=== PATIENT | female | born 1995 | race Asian ===

== ENCOUNTER 2016-09-04 23:03 | Inpatient (IN) | payer OTHER, MEDICAID ==
[2016-09-04] MEDS ORDERED: fentaNYL 100 MCG/2 ML INJ ONE (23:16)
[2016-09-04 23:33] LABS: ADD DIFF? YES; HEMATOCRIT 27.3 % (38.0-47.0); MEAN CELL VOLUME 94.1 fL (81.5-99.8); PLATELET COUNT 118 10^3/uL (150-400); RED CELL DISTRIBUTION WIDTH 11.5 % (11.5-15.2)
[2016-09-04 23:34] LABS: ABSOLUTE NRBC COUNT 0.02 10^3/uL (0-0.01); ADD MORPH? NO; ADD SCAN? NO; ATYPICAL LYMPHOCYTE FLAG 10 (0-99); FRAGMENT RBC FLAG 0 (0-99); LEFT SHIFT FLG 40 (0-99); LIPEMIA HEMOLYSIS FLAG 80 (0-99); NRBC-AUTO% 0.1 % (0.0-0.2); PLATELET CLUMPS FLAG 10 (0-99)
[2016-09-04 23:38] LABS: INR 1.34 (0.83-1.16); PROTIME(PATIENT) 16.6 SEC (12.0-15.0)
[2016-09-04 23:39] LABS: APTT 34.9 SEC (23.0-38.0)
[2016-09-04 23:42] LABS: ANION GAP 13 mEq/L (8-16); CALCIUM 8.8 mg/dL (8.5-10.4); CARBON DIOXIDE 20 mEq/l (22-31); CHLORIDE 105 mEq/L (97-110); ETHANOL SERUM < 10 mg/dL (0-10); GLOMERULAR FILTRATION RATE > 60; GLUCOSE 139 mg/dL (70-100); POTASSIUM 3.1 mEq/L (3.5-5.2); SODIUM 138 mEq/L (134-144)
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
[2016-09-04 23:55] LABS: PLATELET ESTIMATE ADEQUATE (ADEQ)
[2016-09-05] MEDS ORDERED: fentaNYL 100 MCG/2 ML INJ ONE
[2016-09-05] MEDS ORDERED: fentaNYL 100 MCG/2 ML INJ IVP ONE ×2 (00:12→00:13)
[2016-09-05] MEDS ORDERED: ceFAZolin 2 GM/DEXTROSE 100 ML IV ONE (00:13)
[2016-09-05] MEDS ORDERED: NALOXONE HCL 0.4 MG/ML INJ IVP PRN (00:18)
[2016-09-05] MEDS ORDERED: HYDROCODONE/APAP 5/325 TAB PO PRN (00:18)
[2016-09-05] MEDS ORDERED: HYDROmorphONE/DILAUDID 1 MG/ML SYR ONE (00:30)
[2016-09-05] MEDS ORDERED: HYDROmorphONE/DILAUDID 1 MG/ML SYR IVP ONE (00:32)
[2016-09-05] MEDS ORDERED: IOPAMIDOL (ISOVUE-300) 100 ML BTL IV ONE (01:14)
[2016-09-05 01:22] LABS: COLOR YELLOW; LEUKOCYTE ESTERASE,URINE NEGATIVE (NEGATIVE); NITRITE,URINE NEGATIVE (NEGATIVE)
[2016-09-05 01:25] LABS: MUCUS TRACE /lpf (NONE-1+); RBC,URINE 50-182 /hpf (0-3)
[2016-09-05] MEDS: NS 1,000 ML IV SCH ×3 (03:29→21:06)
[2016-09-05] MEDS: POTASSIUM Cl (KCl) 100 ML IV SCH ×2 (04:05→04:40)
[2016-09-05] MEDS ORDERED: BACITRACIN OINTMENT 1 PACKET TP PRN (04:25)
[2016-09-05 04:38] LABS: % IMMATURE GRANULYOCYTES 0.7 % (0.0-1.1); ABSOLUTE IMMATURE GRANULOCYTES 0.15 10^3/uL (0.00-0.10); ADD DIFF? NO; ADD MORPH? NO; ADD SCAN? NO; ATYPICAL LYMPHOCYTE FLAG 0 (0-99); FRAGMENT RBC FLAG 0 (0-99); HEMATOCRIT 31.9 % (38.0-47.0); HEMOGLOBIN 10.6 g/dL (12.6-16.3); LEFT SHIFT FLG 70 (0-99); LIPEMIA HEMOLYSIS FLAG 80 (0-99); MEAN CELL HEMOGLOBIN 30.6 pg (27.9-34.1); MEAN CELL HEMOGLOBIN CONCENTR. 33.2 g/dL (32.4-36.7); MEAN CELL VOLUME 92.2 fL (81.5-99.8); MEAN PLATELET VOLUME 10.5 fL (8.7-11.7); PLATELET CLUMPS FLAG 0 (0-99); PLATELET COUNT 128 10^3/uL (150-400); RED BLOOD CELL COUNT 3.46 10^6/uL (4.18-5.33); RED CELL DISTRIBUTION WIDTH 11.6 % (11.5-15.2)
[2016-09-05] MEDS: BACITRACIN ZINC 14.2 GM OINTTUBE TP PRN ×2 (05:05→11:54)
[2016-09-05 05:06] LABS: ANION GAP 11 mEq/L (8-16); CALCIUM 7.9 mg/dL (8.5-10.4); CARBON DIOXIDE 19 mEq/l (22-31); CHLORIDE 111 mEq/L (97-110); CREATININE 0.9 mg/dL (0.6-1.0); GLOMERULAR FILTRATION RATE > 60; GLUCOSE 122 mg/dL (70-100); POTASSIUM 3.6 mEq/L (3.5-5.2); SODIUM 141 mEq/L (134-144)
[2016-09-05] MEDS: ONDANSETRON 4 MG/2 ML VIAL IVP PRN ×4 (05:16→21:05)
[2016-09-05] MEDS: HYDROmorphONE/DILAUDID 6 MG/30 ML PCA IV PRN (08:39)
[2016-09-05] MEDS: ENOXAPARIN 40 MG/0.4 ML SYR SC SCH (08:41)
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
--- NOTE | 2016-09-05 17:38 | WOCRNPDOC ---
WOCRN Advanced Assessment Note - Skin Integrity Problem, Advanced Assess Right Foot Abrasion Dressing Type: Adaptic Touch Dressing Description: Intact Exudate Characteristic(s): Serosanguinous Win[place]red Wound Swelling: Mild Wound Bed Constitution: Smooth Tissue Site Measurement - Head-to-Toe Length X Width X Depth (cm): 1x1.5x0.2 (x2) Skin Integrity Problem Comment: No concerns. Small full thickness abrasions on foot and on first and second digits. Allevyn (dorsal)/bandaid (toes) and wound gel are appropriate interventions. Unable to assess back due to pain/fx. Other abrasions are minor and can be left EDITING INTERN. Will try and coordinate with RN if necessary to see back abrasion.
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
[2016-09-05] MEDS: diphenhydrAMINE 25 MG CAP PO PRN (22:58)
[2016-09-06] MEDS: diphenhydrAMINE 25 MG CAP PO PRN ×3 (00:20→12:28)
[2016-09-06] MEDS: NS 1,000 ML IV SCH (05:44)
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
[2016-09-06] MEDS: ENOXAPARIN 40 MG/0.4 ML SYR SC SCH (10:47)
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
[2016-09-06] MEDS: DIAZEPAM 2 MG TAB PO PRN (12:55)
[2016-09-06] MEDS: HYDROmorphONE/DILAUDID 6 MG/30 ML PCA IV PRN (13:29)
[2016-09-06] MEDS ORDERED: IOPAMIDOL (ISOVUE 370) 100 ML BTL IV ONE (14:36)
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
[2016-09-07 05:05] LABS: % IMMATURE GRANULYOCYTES 0.4 % (0.0-1.1); ABSOLUTE IMMATURE GRANULOCYTES 0.03 10^3/uL (0.00-0.10); ADD DIFF? NO; ADD MORPH? YES; ADD SCAN? NO; ATYPICAL LYMPHOCYTE FLAG 0 (0-99); FRAGMENT RBC FLAG 0 (0-99); LEFT SHIFT FLG 0 (0-99); LIPEMIA HEMOLYSIS FLAG 80 (0-99); MEAN CELL HEMOGLOBIN 31.2 pg (27.9-34.1); MEAN CELL HEMOGLOBIN CONCENTR. 33.3 g/dL (32.4-36.7); MEAN CELL VOLUME 93.7 fL (81.5-99.8); MEAN PLATELET VOLUME 11.4 fL (8.7-11.7); PLATELET CLUMPS FLAG 0 (0-99); PLATELET COUNT 61 10^3/uL (150-400); RED BLOOD CELL COUNT 1.89 10^6/uL (4.18-5.33); RED CELL DISTRIBUTION WIDTH 11.8 % (11.5-15.2)
[2016-09-07 05:13] LABS: HEMATOCRIT 17.7 % (38.0-47.0); HEMOGLOBIN 5.9 g/dL (12.6-16.3)
[2016-09-07 05:30] LABS: ALANINE AMINOTRANSFERASE 69 IU/L (9-52); ALBUMIN 2.3 g/dL (3.5-5.0); ALKALINE PHOSPHATASE 44 IU/L (38-126); ANION GAP 3 mEq/L (8-16); ASPARTATE AMINOTRANSFERASE 62 IU/L (14-46); BILIRUBIN,TOTAL 0.5 mg/dL (0.1-1.4); CALCIUM 7.7 mg/dL (8.5-10.4); CARBON DIOXIDE 28 mEq/l (22-31); CHLORIDE 106 mEq/L (97-110); CREATININE 0.7 mg/dL (0.6-1.0); GLOMERULAR FILTRATION RATE > 60; GLUCOSE 87 mg/dL (70-100); POTASSIUM 3.4 mEq/L (3.5-5.2); SODIUM 137 mEq/L (134-144); TOTAL PROTEIN 4.8 g/dL (6.3-8.2)
[2016-09-07 05:42] LABS: PLATELET ESTIMATE DECREASED (ADEQ); POLYCHROMASIA 1+
[2016-09-07 05:45] LABS: HEMATOCRIT 18.4 % (38.0-47.0)
[2016-09-07 05:57] LABS: HEMOGLOBIN 6.2 g/dL (12.6-16.3)
[2016-09-07] MEDS ORDERED: FUROSEMIDE 20 MG/2 ML VIAL IVP ONE (06:11)
--- NOTE | 2016-09-07 06:12 | SOAPPROG ---
SOAP Progress Note Assessment/Plan: Assessment/Plan H/H low. No obvious source on CT abdomen yesterday. Will transfuse 2 units PRBC 09/07/16 06:12 Objective: Vital Signs Temp Pulse Resp BP Pulse Ox 37.7 C 107 H 18 121/58 H 100 09/07/16 04:00 09/07/16 04:00 09/07/16 04:00 09/07/16 04:00 09/07/16 04:00 Laboratory Results 09/07/16 05:30 09/07/16 04:32 09/06/16 09/07/16 09/08/16 05:59 05:59 05:59 Intake Total 3392 1637 Output Total 1850 2550 Balance 1542 -913 PT 16.6 SEC (12.0-15.0) H 09/04/16 23:14 INR 1.34 (0.83-1.16) H 09/04/16 23:14 ICD10 Worksheet Patient Problems: Problems Problem Status Onset Laceration of ankle Acute Scalp laceration Acute
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
[2016-09-07] MEDS ORDERED: MAGNESIUM HYDROXIDE 30 ML UDCUP PO PRN (09:13)
[2016-09-07] MEDS ORDERED: LACTULOSE 20 GM/30 ML UDCUP PO PRN (09:13)
[2016-09-07] MEDS ORDERED: BISACODYL 10 MG SUPP PR PRN (09:13)
[2016-09-07] MEDS ORDERED: FUROSEMIDE 20 MG/2 ML VIAL ONE (09:56)
[2016-09-07] MEDS: ONDANSETRON 4 MG/2 ML VIAL IVP PRN ×2 (10:28→17:10)
[2016-09-07] MEDS: diphenhydrAMINE 25 MG CAP PO PRN (11:02)
--- NOTE | 2016-09-07 15:40 | WOCRNPDOC ---
WOCRN Advanced Assessment Note - Skin Integrity Problem, Advanced Assess Bilateral Buttock Abrasion Dressing Type: Open to Air Exudate Amount: None Integumentary Issue Intervention: Dressing Applied Wound Bed Constitution: Smooth Tissue Skin Integrity Problem Comment: Large partial thickness abrasion on right buttock and left flank/buttock. No pressure injury involvement. Unable to measure wound as dressing needed to be applied quickly due to patient's pain tolerace level and the brace needing to be fitted. Approx 15x15 on the left and 10x10 on the right. No concerns, no infection noted. Cleaned with ns and gauze. Silvasorb applied to wound bed. Covered with mepilex transfer and ABD to give patient extra padding and wear time of dressing under the brace. Wound care will not follow. Please reconsult prn. Jolie TORREZ in room for care.
[2016-09-07 16:11] LABS: HEMATOCRIT 25.9 % (38.0-47.0); HEMOGLOBIN 8.9 g/dL (12.6-16.3)
[2016-09-07] MEDS: SENNOSIDES/DOCUSATE SODIUM TAB PO SCH ×2 (17:42→21:21)
[2016-09-07] MEDS: BACITRACIN ZINC 14.2 GM OINTTUBE TP PRN (20:34)
[2016-09-08] MEDS: HYDROmorphONE/DILAUDID 6 MG/30 ML PCA IV PRN (02:09)
[2016-09-08 05:05] LABS: % IMMATURE GRANULYOCYTES 0.9 % (0.0-1.1); ABSOLUTE IMMATURE GRANULOCYTES 0.06 10^3/uL (0.00-0.10); ADD DIFF? NO; ADD MORPH? NO; ADD SCAN? NO; ATYPICAL LYMPHOCYTE FLAG 0 (0-99); FRAGMENT RBC FLAG 0 (0-99); HEMOGLOBIN 8.8 g/dL (12.6-16.3); LEFT SHIFT FLG 10 (0-99); LIPEMIA HEMOLYSIS FLAG 90 (0-99); MEAN CELL HEMOGLOBIN 29.6 pg (27.9-34.1); MEAN CELL HEMOGLOBIN CONCENTR. 33.8 g/dL (32.4-36.7); MEAN CELL VOLUME 87.5 fL (81.5-99.8); MEAN PLATELET VOLUME 11.1 fL (8.7-11.7); PLATELET CLUMPS FLAG 0 (0-99); PLATELET COUNT 80 10^3/uL (150-400); RED BLOOD CELL COUNT 2.97 10^6/uL (4.18-5.33); RED CELL DISTRIBUTION WIDTH 13.5 % (11.5-15.2)
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
[2016-09-08] MEDS: SENNOSIDES/DOCUSATE SODIUM TAB PO SCH ×2 (09:25→20:41)
[2016-09-08] MEDS: BACITRACIN ZINC 14.2 GM OINTTUBE TP PRN (12:32)
[2016-09-08] MEDS: ONDANSETRON 4 MG/2 ML VIAL IVP PRN (12:40)
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
[2016-09-08] MEDS: NS 1,000 ML IV SCH (17:13)
[2016-09-08] MEDS: POLYETHYLENE GLYCOL 3350 17 GM PKT PO PRN (20:41)
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
[2016-09-09] MEDS: ONDANSETRON 4 MG/2 ML VIAL IVP PRN (09:52)
[2016-09-09] MEDS: SENNOSIDES/DOCUSATE SODIUM TAB PO SCH ×2 (09:52→20:24)
[2016-09-09] MEDS: POLYETHYLENE GLYCOL 3350 17 GM PKT PO PRN (09:56)
[2016-09-09] MEDS: OXYCODONE/APAP 5/325 TAB PO PRN ×2 (10:40→17:27)
[2016-09-09] MEDS: ONDANSETRON DISINTEGRATING 4 MG TAB PO PRN ×2 (11:31→17:26)
[2016-09-09] MEDS ORDERED: oxyCODONE IR 5 MG TAB PO PRN (19:48)
[2016-09-09] MEDS: BACITRACIN ZINC 14.2 GM OINTTUBE TP PRN (20:24)
[2016-09-09] MEDS: oxyCODONE IR 5 MG TAB PO PRN (20:24)
[2016-09-09] MEDS: diphenhydrAMINE 25 MG CAP PO PRN (20:27)
[2016-09-09] MEDS: DIAZEPAM 2 MG TAB PO PRN (22:28)
[2016-09-10] MEDS: oxyCODONE IR 5 MG TAB PO PRN ×4 (00:35→11:29)
[2016-09-10] MEDS: diphenhydrAMINE 25 MG CAP PO PRN ×2 (03:10→06:47)
[2016-09-10] MEDS: ACETAMINOPHEN 325 MG TAB PO PRN ×3 (04:43→11:29)
[2016-09-10 07:42] VITALS: BP 116/62; PULSE 95; RESP 14; TEMP 99.4; O2SAT 95
[2016-09-10] MEDS: SENNOSIDES/DOCUSATE SODIUM TAB PO SCH (08:26)
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
[2016-09-10] MEDS: POLYETHYLENE GLYCOL 3350 17 GM PKT PO PRN (11:30)
== END 2016-09-10 15:26 | DRG 964 ==
LOC: EDUNIT# → F2N 09-05 03:07 → OBSVTOIN 09-05 16:25 → F3N 09-06 22:05
PROVIDERS: ADMIT Surgery; ATTEND Surgery
PROC: 0HQ0XZZ Repair Scalp Skin, External Approach (ICD-10-PCS; principal; 2016-09-04)
PROC: 2W3 Placement, Anatomical Regions, Immobilization (ICD-10-PCS; 2016-09-07)
PROC: 30233N1 Transfusion of Nonautologous Red Blood Cells into Peripheral Vein, Percutaneous Approach (ICD-10-PCS; 2016-09-07)
PROC: 0HQLXZZ Repair Left Lower Leg Skin, External Approach (ICD-10-PCS; 2016-09-08)
DX: S32.501A Unspecified fracture of right pubis, initial encounter for closed fracture (principal); S37.011A Minor contusion of right kidney, initial encounter; D62 Acute posthemorrhagic anemia; S32.10XA Unspecified fracture of sacrum, initial encounter for closed fracture; S32.028A Other fracture of second lumbar vertebra, initial encounter for closed fracture; S32.038A Other fracture of third lumbar vertebra, initial encounter for closed fracture; S32.010A Wedge compression fracture of first lumbar vertebra, initial encounter for closed fracture; S32.018A Other fracture of first lumbar vertebra, initial encounter for closed fracture; S01.01XA Laceration without foreign body of scalp, initial encounter; S91.012A Laceration without foreign body, left ankle, initial encounter; V03.00XA Pedestrian on foot injured in collision with car, pick-up truck or van in nontraffic accident, initial encounter; Y92.414 Local residential or business street as the place of occurrence of the external cause; S27.0XXA Traumatic pneumothorax, initial encounter
CPT/HCPCS: 80305; 82947-QW; 92507-GN; 92523-GN; 96374; 97162-GP; 97166-GO; 97530-GP; 97535-GO; G0480; J0690; J1170; J1650; J2405; J3010; L0174; P9016; P9021; Q9967

== ENCOUNTER 2016-09-08 10:18 | Inpatient (IN) | payer OTHER, MEDICAID ==
[2016-09-10] MEDS ORDERED: DIAZEPAM 2 MG TAB PO PRN (16:21)
[2016-09-10] MEDS ORDERED: BACITRACIN ZINC 14.2 GM OINTTUBE TP PRN (16:21)
[2016-09-10] MEDS ORDERED: diphenhydrAMINE 25 MG CAP PO PRN (16:21)
[2016-09-10] MEDS: oxyCODONE IR 5 MG TAB PO PRN ×2 (16:41→20:29)
[2016-09-10] MEDS ORDERED: MAGNESIUM HYDROXIDE 30 ML UDCUP PO PRN (16:51)
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
[2016-09-10] MEDS: SENNOSIDES/DOCUSATE SODIUM TAB PO SCH (20:29)
[2016-09-11] MEDS: ACETAMINOPHEN 325 MG TAB PO PRN ×3 (00:01→12:05)
[2016-09-11] MEDS: oxyCODONE IR 5 MG TAB PO PRN ×4 (00:03→17:52)
[2016-09-11] MEDS: ONDANSETRON DISINTEGRATING 4 MG TAB PO PRN ×3 (07:36→18:56)
[2016-09-11 08:11] LABS: HEMATOCRIT 32.2 % (38.0-47.0); HEMOGLOBIN 10.7 g/dL (12.6-16.3); MEAN CELL HEMOGLOBIN 29.8 pg (27.9-34.1); MEAN CELL HEMOGLOBIN CONCENTR. 33.2 g/dL (32.4-36.7); MEAN CELL VOLUME 89.7 fL (81.5-99.8); RED BLOOD CELL COUNT 3.59 10^6/uL (4.18-5.33); RED CELL DISTRIBUTION WIDTH 13.6 % (11.5-15.2)
[2016-09-11 08:20] LABS: INR 1.09 (0.83-1.16)
[2016-09-11] MEDS ORDERED: ENOXAPARIN 40 MG/0.4 ML SYR SC SCH (09:00)
[2016-09-11] MEDS: SENNOSIDES/DOCUSATE SODIUM TAB PO SCH ×2 (09:02→20:26)
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
--- NOTE | 2016-09-11 09:36 | PDOREHIP ---
Admission [facility] - Admission - 3 Day Assessment Period Admission Date/Day 1: 09/10/16 Day 2: 09/11/16 Day 3: 09/12/16 - Active Diagnoses Comorbidities and Co-existing Conditions at Admission: 74022. None of the Above - Skin Conditions Unhealed Pressure Ulcer (1 or more/Stage 1 or >)-Admission: 0. No
[2016-09-11] MEDS: ENOXAPARIN 40 MG/0.4 ML SYR SC SCH (10:21)
[2016-09-11] MEDS: POLYETHYLENE GLYCOL 3350 17 GM PKT PO PRN (11:34)
[2016-09-11] MEDS ORDERED: oxyCODONE IR 5 MG TAB PO ONE (19:43)
[2016-09-11] MEDS: MAG HYDROX/AL HYDROX/SIMETH 30 ML UDCUP PO PRN (20:03)
[2016-09-11] MEDS ORDERED: PROMETHAZINE HCL 25 MG TAB PO ONE (20:16)
[2016-09-11] MEDS ORDERED: MAGNESIUM CITRATE 300 ML BOTTLE PO PRN (20:17)
[2016-09-11] MEDS ORDERED: PROMETHAZINE HCL 25 MG TAB ONE (20:24)
[2016-09-11] MEDS: BISACODYL 10 MG SUPP PR PRN ×2 (20:29→20:53)
[2016-09-12] MEDS: ONDANSETRON DISINTEGRATING 4 MG TAB PO PRN (04:43)
[2016-09-12] MEDS: oxyCODONE IR 5 MG TAB PO PRN (04:43)
[2016-09-12] MEDS ORDERED: PROMETHAZINE HCL 25 MG TAB ONE (05:10)
[2016-09-12] MEDS ORDERED: diphenhydrAMINE 25 MG CAP PO ONE (05:10)
[2016-09-12] MEDS ORDERED: oxyCODONE IR 5 MG TAB PO PRN (05:10)
[2016-09-12] MEDS: diphenhydrAMINE 25 MG CAP PO PRN ×2 (05:19→20:27)
[2016-09-12] MEDS: PROMETHAZINE HCL 25 MG TAB PO PRN (05:20)
[2016-09-12] MEDS: SENNOSIDES/DOCUSATE SODIUM TAB PO SCH ×2 (08:42→20:26)
[2016-09-12] MEDS: ENOXAPARIN 40 MG/0.4 ML SYR SC SCH (08:42)
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
[2016-09-12] MEDS: HYDROmorphONE/DILAUDID 2 MG TAB PO PRN ×2 (12:36→16:42)
[2016-09-12] MEDS: morphINE SR 15 MG TAB PO SCH (20:26)
[2016-09-12] MEDS: ACETAMINOPHEN 325 MG TAB PO PRN (20:26)
[2016-09-12] MEDS: MAG HYDROX/AL HYDROX/SIMETH 30 ML UDCUP PO PRN (20:27)
[2016-09-13] MEDS: HYDROmorphONE/DILAUDID 2 MG TAB PO PRN ×4 (06:24→23:46)
[2016-09-13] MEDS: diphenhydrAMINE 25 MG CAP PO PRN ×2 (06:24→20:56)
[2016-09-13] MEDS: ACETAMINOPHEN 325 MG TAB PO PRN ×2 (06:31→18:02)
[2016-09-13] MEDS: BISACODYL 10 MG SUPP PR PRN (06:33)
[2016-09-13] MEDS: morphINE SR 15 MG TAB PO SCH ×2 (08:23→20:56)
[2016-09-13] MEDS: SENNOSIDES/DOCUSATE SODIUM TAB PO SCH ×2 (08:23→20:56)
[2016-09-13] MEDS: POLYETHYLENE GLYCOL 3350 17 GM PKT PO PRN (08:23)
[2016-09-13] MEDS: ENOXAPARIN 40 MG/0.4 ML SYR SC SCH (08:24)
[2016-09-13] MEDS ORDERED: POLYETHYLENE GLYCOL 3350 17 GM PKT PO ONE (09:33)
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
[2016-09-13] MEDS: PROMETHAZINE HCL 25 MG TAB PO PRN (18:39)
[2016-09-14] MEDS: HYDROmorphONE/DILAUDID 2 MG TAB PO PRN ×3 (07:45→21:35)
[2016-09-14] MEDS: POLYETHYLENE GLYCOL 3350 17 GM PKT PO SCH (07:51)
[2016-09-14] MEDS: SENNOSIDES/DOCUSATE SODIUM TAB PO SCH ×2 (07:52→20:53)
[2016-09-14] MEDS: ENOXAPARIN 40 MG/0.4 ML SYR SC SCH (07:53)
[2016-09-14] MEDS: morphINE SR 15 MG TAB PO SCH ×2 (08:34→20:53)
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
[2016-09-14] MEDS: ACETAMINOPHEN 325 MG TAB PO PRN (13:40)
[2016-09-15] MEDS: HYDROmorphONE/DILAUDID 2 MG TAB PO PRN ×3 (08:22→20:52)
[2016-09-15] MEDS: POLYETHYLENE GLYCOL 3350 17 GM PKT PO SCH (08:23)
[2016-09-15] MEDS: SENNOSIDES/DOCUSATE SODIUM TAB PO SCH ×2 (08:24→20:49)
[2016-09-15] MEDS: ENOXAPARIN 40 MG/0.4 ML SYR SC SCH (08:54)
[2016-09-15] MEDS: morphINE SR 15 MG TAB PO SCH ×2 (09:11→20:49)
[2016-09-15] MEDS: PROMETHAZINE HCL 25 MG TAB PO PRN (11:09)
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
[2016-09-15] MEDS: ACETAMINOPHEN 325 MG TAB PO PRN (12:05)
[2016-09-16] MEDS: HYDROmorphONE/DILAUDID 2 MG TAB PO PRN ×3 (07:32→18:37)
[2016-09-16] MEDS: POLYETHYLENE GLYCOL 3350 17 GM PKT PO SCH (09:00)
[2016-09-16] MEDS: SENNOSIDES/DOCUSATE SODIUM TAB PO SCH ×2 (09:00→20:57)
[2016-09-16] MEDS: ENOXAPARIN 40 MG/0.4 ML SYR SC SCH (09:01)
[2016-09-16] MEDS: morphINE SR 15 MG TAB PO SCH ×2 (09:01→20:56)
[2016-09-16] MEDS: ACETAMINOPHEN 325 MG TAB PO PRN (09:05)
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
[2016-09-16] MEDS: PROMETHAZINE HCL 25 MG TAB PO PRN (11:13)
[2016-09-17] MEDS: SENNOSIDES/DOCUSATE SODIUM TAB PO SCH ×2 (07:37→20:57)
[2016-09-17] MEDS: morphINE SR 15 MG TAB PO SCH ×2 (07:38→20:57)
[2016-09-17] MEDS: POLYETHYLENE GLYCOL 3350 17 GM PKT PO SCH (07:38)
[2016-09-17] MEDS: HYDROmorphONE/DILAUDID 2 MG TAB PO PRN (07:39)
[2016-09-17] MEDS: ENOXAPARIN 40 MG/0.4 ML SYR SC SCH (07:40)
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
[2016-09-17] MEDS: PROMETHAZINE HCL 25 MG TAB PO PRN (12:55)
[2016-09-18] MEDS: SENNOSIDES/DOCUSATE SODIUM TAB PO SCH ×2 (09:02→20:08)
[2016-09-18] MEDS: morphINE SR 15 MG TAB PO SCH ×2 (09:02→19:58)
[2016-09-18] MEDS: ENOXAPARIN 40 MG/0.4 ML SYR SC SCH (09:02)
[2016-09-18] MEDS: POLYETHYLENE GLYCOL 3350 17 GM PKT PO SCH (09:02)
[2016-09-18 12:11] LABS: ANION GAP 12 mEq/L (8-16); CALCIUM 10.1 mg/dL (8.5-10.4); CARBON DIOXIDE 27 mEq/l (22-31); CHLORIDE 102 mEq/L (97-110); CREATININE 0.7 mg/dL (0.6-1.0); GLOMERULAR FILTRATION RATE > 60; GLUCOSE 81 mg/dL (70-100); POTASSIUM 4.1 mEq/L (3.5-5.2); SODIUM 141 mEq/L (134-144)
[2016-09-18] MEDS: PIPERACILLIN/TAZO 3.375 GM/DEX 50 ML IV SCH ×3 (12:36→23:32)
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
--- NOTE | 2016-09-18 14:16 | WOCRNPDOC ---
WOCRN Advanced Assessment Note - Skin Integrity Problem, Advanced Assess Left Heel Laceration Dressing Type: Kerlix, Telfa Dressing Description: Clean/Dry, Intact Closure Description: Sutures, Not Approximated Exudate Amount: Scant Exudate Color: Reddish/Yellow Exudate Characteristic(s): Serosanguinous Integumentary Issue Intervention: Dressing Changed Que Wound Tissue: Erythema (mild, discrete), Macerated, Raw (peeling periwound) Que Wound Swelling: Mild Wound Bed Color: Red, Yellow Wound Bed Constitution: Granulation Tissue, Adhered Slough Site Odor: Slight Site Measurement - Head-to-Toe Length X Width X Depth (cm): 6.5cmx1.2cmx0.2cm Skin Integrity Problem Comment: Sutured, linear laceration wound noted on back of patient's L heel, no purulence noted. Six sutures present along length of wound, tissue distal to those sutures has opened up in the middle of wound bed, extending laterally,forming a wound bed 1.2cm from head to toe and 6.5cm side to side. Adhered slough noted along this wound, w/ smooth tissue throughout remaining wound bed. There is also an area of dried scab covering the most medial suture. Que-wound skin is slightly macerated w/ some peeling evident. There is some discrete erythema immediately que-wound, but none extending onto the heel or foot. In addition, patient denied any pain when wound was cleaned and assessed. While wound does not appear to be grossly infected, the dehiscence suggests there may be infection present and developing. Applied dressing to facilitate autloysis of the slough, w/ dc orders [facility] when oral anti-biotics are complete. Provided teaching and wound care instructions to patient's brother, but he was hesitant and expressed some concern about doing this. Patient may require dressing changes to be performed by funeral home assistant. cementer oil well Cy present and assisting.
[2016-09-18] MEDS: PROMETHAZINE HCL 25 MG TAB PO PRN (15:39)
[2016-09-18] MEDS: HYDROmorphONE/DILAUDID 2 MG TAB PO PRN ×2 (15:39→19:57)
[2016-09-19] MEDS: PIPERACILLIN/TAZO 3.375 GM/DEX 50 ML IV SCH ×2 (05:15→11:47)
[2016-09-19] MEDS: HYDROmorphONE/DILAUDID 2 MG TAB PO PRN (05:16)
[2016-09-19 06:33] VITALS: BP 93/52; PULSE 62; RESP 15; TEMP 98.1; O2SAT 97
[2016-09-19] MEDS: POLYETHYLENE GLYCOL 3350 17 GM PKT PO SCH (08:46)
[2016-09-19] MEDS: morphINE SR 15 MG TAB PO SCH (08:47)
[2016-09-19] MEDS: SENNOSIDES/DOCUSATE SODIUM TAB PO SCH (09:37)
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
== END 2016-09-19 14:42 | disposition home or self-care (01) | DRG 561 ==
LOC: BREH 09-10 15:45
PROVIDERS: ADMIT Internal Medicine; ATTEND Internal Medicine
PROC: F07Z9FZ Gait Training/Functional Ambulation Treatment using Assistive, Adaptive, Supportive or Protective Equipment (ICD-10-PCS; principal; 2016-09-10)
PROC: F0636ZZ Communicative/Cognitive Integration Skills Treatment of Neurological System - Whole Body (ICD-10-PCS; principal; 2016-09-10)
DX: S32.10XD Unspecified fracture of sacrum, subsequent encounter for fracture with routine healing (principal); S32.511D Fracture of superior rim of right pubis, subsequent encounter for fracture with routine healing; S32.591D Other specified fracture of right pubis, subsequent encounter for fracture with routine healing; S32.020D Wedge compression fracture of second lumbar vertebra, subsequent encounter for fracture with routine healing; S37.011D Minor contusion of right kidney, subsequent encounter; S91.012D Laceration without foreign body, left ankle, subsequent encounter; S01.01XD Laceration without foreign body of scalp, subsequent encounter; S06.0X9D Concussion with loss of consciousness of unspecified duration, subsequent encounter; V09.20XD Pedestrian injured in traffic accident involving unspecified motor vehicles, subsequent encounter; D64.9 Anemia, unspecified; D69.6 Thrombocytopenia, unspecified
CPT/HCPCS: 92507-GN; 92522-GN; 97110-GO; 97110-GP; 97116-GP; 97161-GP; 97166-GO; 97530-GO; 97530-GP; 97535-GO; J1650; J2543

== ENCOUNTER → 2016-10-04 | Outpatient (CLI) | payer OTHER, MEDICAID | LOC: FIMAGING 10:43 → EDSTATUS 10:44 | PROVIDERS: ATTEND Neurological Surgery | DX: S32.020D Wedge compression fracture of second lumbar vertebra, subsequent encounter for fracture with routine healing (principal); M40.209 Unspecified kyphosis, site unspecified ==

== ENCOUNTER 2016-10-10 02:42 | Emergency (ER) | payer OTHER, MEDICAID ==
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
[2016-10-10] MEDS: MAGNESIUM CITRATE 300 ML BOTTLE PO ONE ×2 (04:10→05:18)
[2016-10-10 07:33] VITALS: BP 122/74; PULSE 75; RESP 16; TEMP 97.5; O2SAT 95
== END 2016-10-10 07:32 | disposition home or self-care (01) ==
DX: K59.00 Constipation, unspecified (principal)

== ENCOUNTER → 2016-11-08 | Outpatient (CLI) | payer OTHER, MEDICAID | LOC: FIMAGING 11:10 | PROVIDERS: ATTEND Nurse Practitioner | DX: S32.020A Wedge compression fracture of second lumbar vertebra, initial encounter for closed fracture (principal); M51.26 Other intervertebral disc displacement, lumbar region; M41.86 Other forms of scoliosis, lumbar region ==

== ENCOUNTER → 2016-12-12 | Outpatient (CLI) | payer OTHER, MEDICAID | LOC: FIMAGING 11:19 | PROVIDERS: ATTEND Nurse Practitioner | DX: S32.008D Other fracture of unspecified lumbar vertebra, subsequent encounter for fracture with routine healing (principal) ==